=== PATIENT | female | born 1980 | race Two or more races ===

== ENCOUNTER 2023-02-05 00:13 | Inpatient (IN) | payer MEDICAID ==
[~2023-02-05 00:13] MED LIST: PREN1TAB52 PO
[2023-02-05 00:20] VITALS: BP 149/98; PULSE 98; RESP 18; TEMP 97.5; O2SAT 99
[2023-02-05] MEDS ORDERED: CLON-598 PO (17:18)
[2023-02-05 18:05] VITALS: BP 109/72; PULSE 103; RESP 16; TEMP 98.5
[2023-02-05] MEDS ORDERED: INFLUENZA VIRUS VACCINE QVS 2023-24 (6MO+)/PF 60 MCG/0.5 ML SYRINGE IM. ONE (18:30)
[2023-02-05 18:36] LABS: GLUCOMETER DEV NAME(LOC) POC.BV; POC SARS-COV2 AG, FIA NEGATIVE (NEGATIVE)
[2023-02-05] MEDS ORDERED: HALOPERIDOL 5 MG TABLET PO PRN (21:15)
[2023-02-05] MEDS ORDERED: LORazepam 2 MG TABLET PO PRN (21:15)
[2023-02-06] VITALS (11 sets, daily range): BP systolic 123–158; BP diastolic 77–122; PULSE 72–122; RESP 17–20; TEMP 96.9–98; O2SAT 97–100
[2023-02-06] MEDS ORDERED: LORazepam 2 MG TABLET PO PRN (09:15)
[2023-02-06] MEDS ORDERED: LOPERAMIDE HCL 2 MG CAPSULE PO PRN ×2 (09:15→15:00)
[2023-02-06] MEDS ORDERED: HydrOXYzine PAMOATE 50 MG CAPSULE PO PRN (09:15)
[2023-02-06] MEDS ORDERED: CYANOCOBALAMIN 1,000 MCG/ML VIAL IM ONE (09:15)
[2023-02-06] MEDS ORDERED: GuaiFENesin/D-METHORPHAN [SUGAR-FREE] 200-20MG/10 ML SYRUP UDCUP PO PRN ×2 (09:15→15:00)
[2023-02-06] MEDS: LORazepam 2 MG TABLET PO SCH (09:41)
[2023-02-06] MEDS: FOLIC ACID 1 MG TABLET PO SCH (11:35)
[2023-02-06] MEDS: SERTRALINE HCL 50 MG TABLET PO SCH (11:35)
[2023-02-06] MEDS: THIAMINE 100 MG TABLET PO SCH ×2 (11:36→16:19)
[2023-02-06] MEDS: MULTIVITAMINS WITH MINERALS, THERAPEUTIC TABLET PO SCH (11:36)
[2023-02-06 12:21] LABS: GLUCOMETER DEV NAME(LOC) POC.BV; POC SARS-COV2 AG, FIA NEGATIVE (NEGATIVE)
[2023-02-06] MEDS ORDERED: PETROLATUM,WHITE 28 GM JELLY TP PRN (15:00)
[2023-02-06] MEDS ORDERED: ONDANSETRON HCL 4 MG TABLET PO PRN (15:00)
[2023-02-06] MEDS ORDERED: MAGNESIUM HYDROXIDE SUSPENSION 30 ML UDCUP PO PRN (15:00)
[2023-02-06] MEDS ORDERED: CloNIDine HCL 0.1 MG TABLET PO PRN (15:00)
[2023-02-06] MEDS ORDERED: ACETAMINOPHEN 325 MG TABLET PO PRN (15:00)
[2023-02-06] MEDS ORDERED: IBUPROFEN 400 MG TABLET PO PRN (15:00)
[2023-02-06] MEDS ORDERED: MAG HYDROX/AL HYDROX/SIMETH ES 30 ML SUSPENSION UDCUP PO PRN (15:00)
[2023-02-06] MEDS ORDERED: DOCUSATE SODIUM 100 MG CAPSULE PO PRN (15:00)
[2023-02-06] MEDS ORDERED: NICOTINE 14 MG/24 HOUR PATCH TD PRN (15:00)
[2023-02-06] MEDS ORDERED: ALBUTEROL SULFATE HFA 90 MCG/PUFF 8 GM INHALER IH PRN (15:00)
[2023-02-06] MEDS: FAMOTIDINE 20 MG TABLET PO SCH (16:19)
[2023-02-07] MEDS ORDERED: LORazepam 2 MG TABLET PO PRN (07:00)
[2023-02-07 08:14] LABS: HEMATOCRIT 39.6 % (36-46); HEMOGLOBIN 13.9 g/dL (12.0-16.0); LYMPHOCYTES # (AUTO) 0.6 K/uL (1.0-4.8); LYMPHOCYTES % (AUTO) 19.2 % (22.0-44.0); MEAN CORPUSCULAR HEMOGLOBIN 36.4 pg (26.0-34.0); MEAN CORPUSCULAR HGB CONC 35.2 G/dL (31.0-37.0); MEAN CORPUSCULAR VOLUME 103 fL (80-100); MONOCYTES # (AUTO) 0.3 K/uL (0.1-1.0); MONOCYTES % (AUTO) 10.6 % (2.0-9.0); NEUTROPHILS # (AUTO) 2.1 K/uL (1.8-7.7); NEUTROPHILS % (AUTO) 67.2 % (40.0-70.0); PLATELET COUNT (AUTO) 165 K/uL (150-450); RED BLOOD CELL COUNT(AUTO) 3.83 MIL/uL (4.00-5.20); RED CELL DISTRIBUTION WIDTH 14.5 % (11.5-14.5); WHITE BLOOD COUNT (AUTO) 3.2 K/uL (4.5-11.0)
[2023-02-07] MEDS: THIAMINE 100 MG TABLET PO SCH ×2 (08:15→17:20)
[2023-02-07] MEDS: MULTIVITAMINS WITH MINERALS, THERAPEUTIC TABLET PO SCH (08:15)
[2023-02-07] MEDS: FOLIC ACID 1 MG TABLET PO SCH (08:15)
[2023-02-07] MEDS: FAMOTIDINE 20 MG TABLET PO SCH ×2 (08:15→16:02)
[2023-02-07] MEDS: SERTRALINE HCL 50 MG TABLET PO SCH (08:15)
[2023-02-07 08:30] VITALS: BP 154/87; PULSE 72; RESP 18; TEMP 97.6; O2SAT 100
[2023-02-07 08:32] LABS: RBC MORPHOLOGY COMMENT ABNORMAL RBC MORPH
[2023-02-07 08:41] LABS: ALANINE AMINOTRANSFERASE 38 U/L (12-78); ALBUMIN 3.3 g/dL (3.4-5.0); ALKALINE PHOSPHATASE 105 U/L (46-116); ANION GAP 6 mmol/L (8-16); ASPARTATE AMINOTRANSFERASE 68 U/L (15-37); CALCIUM, TOTAL 9.5 mg/dL (8.8-10.5); CARBON DIOXIDE 29 mmol/L (22-29); CHLORIDE 96 mmol/L (98-107); CREATININE 0.54 mg/dL (0.60-1.30); GLOMERULAR FILTR. RATE CALC > 60 mL/min (>60); GLUCOSE,RANDOM 79 mg/dL (70-110); POTASSIUM 3.9 mmol/L (3.5-5.1); SODIUM SERUM 131 mmol/L (136-145); THYROID STIMULATING HORMONE 0.73 uIU/mL (0.36-3.74); TOTAL PROTEIN, SERUM 7.4 g/dL (6.4-8.2); UREA NITROGEN, BLOOD 4 mg/dL (7-18)
[2023-02-07 09:10] LABS: CHOLESTEROL 293 mg/dL (131-200); LIPASE 129 U/L (16-77); TRIGLYCERIDES 29 mg/dL (15-150)
[2023-02-07 09:23] LABS: CHOL/HDL RATIO 1.4 (3.9-5.7); HDL CHOLESTEROL 212 mg/dL (40-60); LDL CHOL (CALC.) 75 mg/dL (0-130)
[2023-02-07] MEDS: LORazepam 2 MG TABLET PO SCH ×3 (12:40→20:38)
[2023-02-07 20:00] VITALS: BP 144/90; PULSE 68; RESP 18; TEMP 97.7; O2SAT 100
[2023-02-08 07:00] VITALS: BP 119/64; PULSE 62; RESP 18; TEMP 97.5
[2023-02-08] MEDS: SERTRALINE HCL 50 MG TABLET PO SCH (08:11)
[2023-02-08] MEDS: MULTIVITAMINS WITH MINERALS, THERAPEUTIC TABLET PO SCH (08:11)
[2023-02-08] MEDS: THIAMINE 100 MG TABLET PO SCH ×2 (08:11→16:13)
[2023-02-08] MEDS: LORazepam 2 MG TABLET PO SCH ×4 (08:11→20:05)
[2023-02-08] MEDS: FAMOTIDINE 20 MG TABLET PO SCH ×2 (08:11→16:13)
[2023-02-08] MEDS: FOLIC ACID 1 MG TABLET PO SCH (08:11)
[2023-02-08 15:28] VITALS: BP 124/89; PULSE 99; RESP 17; TEMP 97.5; O2SAT 100
[2023-02-08 21:56] VITALS: BP 121/81; PULSE 73; RESP 18; TEMP 97.7; O2SAT 99
[2023-02-09] MEDS ORDERED: LORazepam 1 MG TABLET PO PRN (07:00)
[2023-02-09] MEDS: FAMOTIDINE 20 MG TABLET PO SCH ×2 (08:32→17:04)
[2023-02-09] MEDS: FOLIC ACID 1 MG TABLET PO SCH (08:33)
[2023-02-09] MEDS: THIAMINE 100 MG TABLET PO SCH ×2 (08:33→17:05)
[2023-02-09] MEDS: MULTIVITAMINS WITH MINERALS, THERAPEUTIC TABLET PO SCH (08:33)
[2023-02-09] MEDS: SERTRALINE HCL 50 MG TABLET PO SCH (08:33)
[2023-02-09] MEDS: LORazepam 1 MG TABLET PO SCH ×4 (08:36→20:20)
[2023-02-09 14:02] VITALS: BP 115/78; PULSE 73; RESP 18; TEMP 97.1; O2SAT 99
[2023-02-09] MEDS: ZOLPIDEM TARTRATE 10 MG TABLET PO PRN (20:20)
[2023-02-09 20:37] VITALS: BP 118/79; PULSE 85; RESP 16; TEMP 97.5
[2023-02-10] MEDS ORDERED: LORazepam 1 MG TABLET PO PRN (07:00)
[2023-02-10] MEDS: MULTIVITAMINS WITH MINERALS, THERAPEUTIC TABLET PO SCH (08:00)
[2023-02-10] MEDS: THIAMINE 100 MG TABLET PO SCH ×2 (08:00→16:01)
[2023-02-10] MEDS: FOLIC ACID 1 MG TABLET PO SCH (08:00)
[2023-02-10] MEDS: FAMOTIDINE 20 MG TABLET PO SCH ×2 (08:00→16:01)
[2023-02-10] MEDS: SERTRALINE HCL 50 MG TABLET PO SCH (08:00)
[2023-02-10 09:00] VITALS: BP 116/84; PULSE 78; RESP 18; TEMP 98; O2SAT 98
[2023-02-10 20:58] VITALS: BP 133/89; PULSE 69; RESP 18; TEMP 97; O2SAT 98
[2023-02-10] MEDS: ZOLPIDEM TARTRATE 10 MG TABLET PO PRN (21:36)
[2023-02-11] MEDS: FAMOTIDINE 20 MG TABLET PO SCH (08:26)
[2023-02-11] MEDS: SERTRALINE HCL 50 MG TABLET PO SCH (08:26)
[2023-02-11] MEDS: THIAMINE 100 MG TABLET PO SCH (08:26)
[2023-02-11] MEDS: MULTIVITAMINS WITH MINERALS, THERAPEUTIC TABLET PO SCH (08:26)
[2023-02-11] MEDS: FOLIC ACID 1 MG TABLET PO SCH (08:26)
[2023-02-11 09:52] VITALS: BP 111/80; PULSE 98; RESP 16; TEMP 97.9; O2SAT 100
[2023-02-11] MEDS ORDERED: SERT-439 PO (14:46)
== END 2023-02-11 16:00 | disposition home or self-care (01) | DRG 751 ==
LOC: B3A 00:13
PROVIDERS: ADMIT Psychiatry & Neurology Psychiatry; ATTEND Psychiatry & Neurology Psychiatry
DX: F33.2 Major depressive disorder, recurrent severe without psychotic features (principal); E87.1 Hypo-osmolality and hyponatremia; R45.851 Suicidal ideations; G47.00 Insomnia, unspecified; Z20.822 Contact with and (suspected) exposure to COVID-19; R03.0 Elevated blood-pressure reading, without diagnosis of hypertension; F41.9 Anxiety disorder, unspecified; F12.90 Cannabis use, unspecified, uncomplicated; F10.939 Alcohol use, unspecified with withdrawal, unspecified; Z79.899 Other long term (current) drug therapy; Z91.51 Personal history of suicidal behavior
CPT/HCPCS: 80053; 80061; 83036; 83690; 84443; 85025; J3420; Q0162

== ENCOUNTER 2023-02-05 20:08 | Emergency (ER) | payer MEDICAID, OTHER ==
[~2023-02-05] VITALS: Ht 157.5 cm; Wt 61.0 kg
[~2023-02-05 20:08] MED LIST changes: +CLON-598 PO
[2023-02-05 21:14] LABS: BASOPHILS % (AUTO) 1.1 % (0.0-2.0); EOSINOPHILS % (AUTO) 1.4 % (1.0-6.0); HEMATOCRIT 41.1 % (36-46); HEMOGLOBIN 14.6 g/dL (12.0-16.0); LYMPHOCYTES % (AUTO) 28.6 % (22.0-44.0); MEAN CORPUSCULAR HEMOGLOBIN 36.2 pg (26.0-34.0); MEAN CORPUSCULAR HGB CONC 35.4 G/dL (31.0-37.0); MEAN CORPUSCULAR VOLUME 102 fL (80-100); MONOCYTES # (AUTO) 0.3 K/uL (0.1-1.0); MONOCYTES % (AUTO) 8.6 % (2.0-9.0); NEUTROPHILS # (AUTO) 2.1 K/uL (1.8-7.7); NEUTROPHILS % (AUTO) 60.3 % (40.0-70.0); PLATELET COUNT (AUTO) 212 K/uL (150-450); RED BLOOD CELL COUNT(AUTO) 4.02 MIL/uL (4.00-5.20); RED CELL DISTRIBUTION WIDTH 14.4 % (11.5-14.5); WHITE BLOOD COUNT (AUTO) 3.5 K/uL (4.5-11.0)
[2023-02-05 21:22] LABS: ALCOHOL, BLOOD (SERUM) 169 mg/dL (0-10)
[2023-02-05 21:26] LABS: COVID AG,FIA SOURCE NASOPHARYNGEAL
[2023-02-05 21:30] LABS: PH,URINE DRUG SCREEN 6.5 (5.0-8.0)
[2023-02-05 21:30] LABS: ANION GAP 14 mmol/L (8-16); CALCIUM, TOTAL 9.4 mg/dL (8.8-10.5); CARBON DIOXIDE 24 mmol/L (22-29); CHLORIDE 95 mmol/L (98-107); CREATININE 0.48 mg/dL (0.60-1.30); GLOMERULAR FILTR. RATE CALC > 60 mL/min (>60); GLUCOSE,RANDOM 96 mg/dL (70-110); POTASSIUM 3.5 mmol/L (3.5-5.1); SODIUM SERUM 133 mmol/L (136-145); UREA NITROGEN, BLOOD 3 mg/dL (7-18)
[2023-02-05 21:35] LABS: ALANINE AMINOTRANSFERASE 51 U/L (12-78); ALBUMIN 3.8 g/dL (3.4-5.0); ALKALINE PHOSPHATASE 118 U/L (46-116); ASPARTATE AMINOTRANSFERASE 101 U/L (15-37); BILIRUBIN,TOTAL 0.7 mg/dL (0.1-1.0); HCG,QUANTITATIVE 3 mIU/mL (0-6); TOTAL PROTEIN, SERUM 7.9 g/dL (6.4-8.2)
[2023-02-05 21:39] LABS: ALCOHOL, URINE DRUG SCREEN POSITIVE (NEGATIVE); AMPHET/METH SCREEN,URINE NEGATIVE (NEGATIVE); BARBITURATE SCREEN, URINE NEGATIVE (NEGATIVE); BENZODIAZEPINES SCREEN,URINE NEGATIVE (NEGATIVE); CANNABINOID SCREEN,URINE POSITIVE (NEGATIVE); COCAINE SCREEN,URINE NEGATIVE (NEGATIVE); METHADONE SCREEN, URINE NEGATIVE (NEGATIVE); OPIATE SCREEN,URINE NEGATIVE (NEGATIVE); PHENCYCLIDINE SCREEN,URINE NEGATIVE (NEGATIVE)
[2023-02-05 21:48] LABS: SARS-COV2 (COVID) ANTIGEN,FIA Negative (Negative)
[2023-02-05 21:51] LABS: RBC MORPHOLOGY COMMENT ABNORMAL RBC MORPH
[2023-02-05 23:44] VITALS: BP 130/80; PULSE 82; RESP 18; TEMP 98.3
== END 2023-02-05 23:56 | disposition home or self-care (01) ==
LOC: EMS 20:08
DX: F32.9 Major depressive disorder, single episode, unspecified (principal); F10.20 Alcohol dependence, uncomplicated; F12.90 Cannabis use, unspecified, uncomplicated; Z20.822 Contact with and (suspected) exposure to COVID-19; Y90.9 Presence of alcohol in blood, level not specified
CPT/HCPCS: 99285; 87426; 80053; 84702; 85025; 36415; 80307; G0480

== ENCOUNTER 2023-02-15 15:17 | Inpatient (IN) | payer MEDICAID, OTHER ==
[~2023-02-15 15:17] MED LIST changes: -CLON-598 PO; -PREN1TAB52 PO; +SERT-439 PO
[2023-02-15 17:44] VITALS: BP 130/85; PULSE 88; RESP 20; TEMP 98.3
[2023-02-15] MEDS ORDERED: LORazepam 2 MG TABLET PO PRN (18:15)
[2023-02-15] MEDS ORDERED: HALOPERIDOL 5 MG TABLET PO PRN (18:15)
[2023-02-15] MEDS ORDERED: INFLUENZA VIRUS VACCINE QVS 2023-24 (6MO+)/PF 60 MCG/0.5 ML SYRINGE IM. ONE (19:00)
[2023-02-15 20:51] LABS: GLUCOMETER DEV NAME(LOC) POC.BV; POC SARS-COV2 AG, FIA NEGATIVE (NEGATIVE)
[2023-02-15] MEDS: ZOLPIDEM TARTRATE 10 MG TABLET PO PRN (21:26)
[2023-02-15 22:47] VITALS: BP 118/68; PULSE 83; RESP 18; TEMP 97.8
[2023-02-16] VITALS (8 sets, daily range): BP systolic 117–143; BP diastolic 75–99; PULSE 100–141; RESP 16–20; TEMP 97.3–98; O2SAT 97–100
[2023-02-16] MEDS: SERTRALINE HCL 50 MG TABLET PO SCH (08:56)
[2023-02-16] MEDS: NICOTINE 21 MG/24 HOUR PATCH TD SCH (08:58)
[2023-02-16] MEDS ORDERED: CYANOCOBALAMIN 1,000 MCG/ML VIAL IM ONE (09:00)
[2023-02-16] MEDS ORDERED: GuaiFENesin/D-METHORPHAN [SUGAR-FREE] 200-20MG/10 ML SYRUP UDCUP PO PRN ×2 (09:00→15:30)
[2023-02-16] MEDS ORDERED: LOPERAMIDE HCL 2 MG CAPSULE PO PRN ×2 (09:00→15:30)
[2023-02-16] MEDS ORDERED: HydrOXYzine PAMOATE 50 MG CAPSULE PO PRN (09:00)
[2023-02-16 09:04] LABS: BASOPHILS % (AUTO) 0.9 % (0.0-2.0); EOSINOPHILS % (AUTO) 0.7 % (1.0-6.0); HEMATOCRIT 39.7 % (36-46); LYMPHOCYTES # (AUTO) 0.5 K/uL (1.0-4.8); LYMPHOCYTES % (AUTO) 10.5 % (22.0-44.0); MEAN CORPUSCULAR HEMOGLOBIN 36.4 pg (26.0-34.0); MEAN CORPUSCULAR HGB CONC 35.1 G/dL (31.0-37.0); MEAN CORPUSCULAR VOLUME 104 fL (80-100); MONOCYTES # (AUTO) 0.6 K/uL (0.1-1.0); MONOCYTES % (AUTO) 11.6 % (2.0-9.0); NEUTROPHILS # (AUTO) 3.9 K/uL (1.8-7.7); NEUTROPHILS % (AUTO) 76.3 % (40.0-70.0); PLATELET COUNT (AUTO) 464 K/uL (150-450); RED BLOOD CELL COUNT(AUTO) 3.83 MIL/uL (4.00-5.20); RED CELL DISTRIBUTION WIDTH 14.7 % (11.5-14.5); WHITE BLOOD COUNT (AUTO) 5.1 K/uL (4.5-11.0)
[2023-02-16 09:12] LABS: RBC MORPHOLOGY COMMENT ABNORMAL RBC MORPH
[2023-02-16 09:25] LABS: ALCOHOL, BLOOD (SERUM) < 3 mg/dL (0-10)
[2023-02-16] MEDS: FOLIC ACID 1 MG TABLET PO SCH (09:25)
[2023-02-16] MEDS: THIAMINE 100 MG TABLET PO SCH ×2 (09:25→16:18)
[2023-02-16] MEDS: MULTIVITAMINS WITH MINERALS, THERAPEUTIC TABLET PO SCH (09:25)
[2023-02-16] MEDS: LORazepam 2 MG TABLET PO PRN ×2 (09:30→12:06)
[2023-02-16 09:44] LABS: CARBON DIOXIDE 29 mmol/L (22-29); CHLORIDE 96 mmol/L (98-107); SODIUM SERUM 135 mmol/L (136-145)
[2023-02-16 09:45] LABS: ALANINE AMINOTRANSFERASE 61 U/L (12-78); ALBUMIN 3.7 g/dL (3.4-5.0); ALKALINE PHOSPHATASE 96 U/L (46-116); ANION GAP 10 mmol/L (8-16); ASPARTATE AMINOTRANSFERASE 61 U/L (15-37); BILIRUBIN,TOTAL 0.6 mg/dL (0.1-1.0); CALCIUM, TOTAL 9.9 mg/dL (8.8-10.5); CHOLESTEROL 297 mg/dL (131-200); CREATININE 0.67 mg/dL (0.60-1.30); FREE T4 (FREE THYROXINE) 0.87 ng/dL (0.76-1.46); GLOMERULAR FILTR. RATE CALC > 60 mL/min (>60); GLUCOSE,RANDOM 205 mg/dL (70-110); HCG,QUANTITATIVE 2 mIU/mL (0-6); THYROID STIMULATING HORMONE 0.68 uIU/mL (0.36-3.74); TOTAL PROTEIN, SERUM 8.1 g/dL (6.4-8.2); TRIGLYCERIDES 47 mg/dL (15-150); UREA NITROGEN, BLOOD 4 mg/dL (7-18)
[2023-02-16 10:05] LABS: CHOL/HDL RATIO 1.7 (3.9-5.7); HDL CHOLESTEROL 176 mg/dL (40-60); LDL CHOL (CALC.) 112 mg/dL (0-130)
[2023-02-16] MEDS ORDERED: MAG HYDROX/ALUMINUM HYD/SIMETH ES 30 ML SUSPENSION UDCUP PO PRN (15:30)
[2023-02-16] MEDS ORDERED: IBUPROFEN 400 MG TABLET PO PRN (15:30)
[2023-02-16] MEDS ORDERED: PETROLATUM,WHITE 28 GM JELLY TP PRN (15:30)
[2023-02-16] MEDS ORDERED: MAGNESIUM HYDROXIDE SUSPENSION 30 ML UDCUP PO PRN (15:30)
[2023-02-16] MEDS ORDERED: ALBUTEROL SULFATE HFA 90 MCG/PUFF 8 GM INHALER IH PRN (15:30)
[2023-02-16] MEDS ORDERED: ACETAMINOPHEN 325 MG TABLET PO PRN (15:30)
[2023-02-16] MEDS ORDERED: NICOTINE 14 MG/24 HOUR PATCH TD PRN (15:30)
[2023-02-16] MEDS ORDERED: DOCUSATE SODIUM 100 MG CAPSULE PO PRN (15:30)
[2023-02-16] MEDS ORDERED: CloNIDine HCL 0.1 MG TABLET PO PRN (15:30)
[2023-02-16] MEDS ORDERED: ONDANSETRON HCL 4 MG TABLET PO PRN (15:30)
[2023-02-17 04:00] VITALS: BP 136/92; PULSE 98; RESP 17; TEMP 97.5; O2SAT 100
[2023-02-17] MEDS: LORazepam 2 MG TABLET PO PRN (06:42)
[2023-02-17] MEDS ORDERED: LORazepam 2 MG TABLET PO PRN (07:00)
[2023-02-17 07:35] LABS: HEMOGLOBIN A1C 4.8 % (3.8-5.6)
[2023-02-17 07:40] LABS: THYROID STIMULATING HORMONE 0.77 uIU/mL (0.36-3.74)
[2023-02-17 07:58] LABS: CHOL/HDL RATIO 1.2 (3.9-5.7)
[2023-02-17] MEDS: MULTIVITAMINS WITH MINERALS, THERAPEUTIC TABLET PO SCH (08:10)
[2023-02-17] MEDS: THIAMINE 100 MG TABLET PO SCH ×2 (08:10→16:04)
[2023-02-17] MEDS: SERTRALINE HCL 50 MG TABLET PO SCH (08:10)
[2023-02-17] MEDS: FOLIC ACID 1 MG TABLET PO SCH (08:10)
[2023-02-17] MEDS: LORazepam 2 MG TABLET PO SCH ×4 (08:10→20:00)
[2023-02-17] MEDS: NICOTINE 21 MG/24 HOUR PATCH TD SCH (08:11)
[2023-02-17 08:44] VITALS: BP 119/77; PULSE 100; RESP 17; TEMP 98; O2SAT 98
[2023-02-17 20:59] VITALS: BP 121/79; PULSE 90; RESP 16; TEMP 97.5; O2SAT 99
[2023-02-18 08:21] VITALS: BP 121/84; PULSE 87; RESP 16; TEMP 98; O2SAT 96
[2023-02-18] MEDS: LORazepam 2 MG TABLET PO SCH ×4 (08:30→20:06)
[2023-02-18] MEDS: MULTIVITAMINS WITH MINERALS, THERAPEUTIC TABLET PO SCH (08:30)
[2023-02-18] MEDS: SERTRALINE HCL 50 MG TABLET PO SCH (08:30)
[2023-02-18] MEDS: FOLIC ACID 1 MG TABLET PO SCH (08:30)
[2023-02-18] MEDS: THIAMINE 100 MG TABLET PO SCH ×2 (08:31→17:23)
[2023-02-18] MEDS: NICOTINE 21 MG/24 HOUR PATCH TD SCH (08:32)
[2023-02-18 20:21] VITALS: BP 123/80; PULSE 92; RESP 19; TEMP 97.6; O2SAT 98
[2023-02-19] MEDS ORDERED: LORazepam 1 MG TABLET PO PRN (07:00)
[2023-02-19 08:17] VITALS: BP 122/74; PULSE 86; RESP 18; TEMP 98; O2SAT 96
[2023-02-19] MEDS: NICOTINE 21 MG/24 HOUR PATCH TD SCH (08:54)
[2023-02-19] MEDS: FOLIC ACID 1 MG TABLET PO SCH (08:54)
[2023-02-19] MEDS: LORazepam 1 MG TABLET PO SCH ×4 (08:54→21:02)
[2023-02-19] MEDS: SERTRALINE HCL 50 MG TABLET PO SCH (08:56)
[2023-02-19] MEDS: THIAMINE 100 MG TABLET PO SCH ×2 (08:56→16:20)
[2023-02-19] MEDS: MULTIVITAMINS WITH MINERALS, THERAPEUTIC TABLET PO SCH (08:57)
[2023-02-19 21:00] VITALS: BP 126/77; PULSE 88; RESP 18; TEMP 98; O2SAT 97
[2023-02-19] MEDS: ZOLPIDEM TARTRATE 10 MG TABLET PO PRN (21:02)
[2023-02-19 21:04] VITALS: BP 126/77; PULSE 88; RESP 18; TEMP 98
[2023-02-20] MEDS ORDERED: LORazepam 1 MG TABLET PO PRN (07:00)
[2023-02-20] MEDS: FOLIC ACID 1 MG TABLET PO SCH (08:25)
[2023-02-20] MEDS: MULTIVITAMINS WITH MINERALS, THERAPEUTIC TABLET PO SCH (08:25)
[2023-02-20] MEDS: SERTRALINE HCL 50 MG TABLET PO SCH (08:25)
[2023-02-20] MEDS: THIAMINE 100 MG TABLET PO SCH (08:25)
[2023-02-20] MEDS: NICOTINE 21 MG/24 HOUR PATCH TD SCH (08:25)
[2023-02-20 08:51] VITALS: BP 116/77; PULSE 83; RESP 16; TEMP 97.8; O2SAT 98
[2023-02-20 09:07] LABS: APPEARANCE,URINE CLEAR (CLEAR); BILIRUBIN,URINE NEGATIVE (NEGATIVE); COLOR,URINE YELLOW (YELLOW); GLUCOSE, URINE (UA) NEGATIVE (NEGATIVE); KETONES,URINE NEGATIVE (NEGATIVE); LEUKOCYTE ESTERASE ,URINE NEGATIVE (NEGATIVE); NITRATE,URINE POSITIVE (NEGATIVE); OCCULT BLOOD,URINE NEGATIVE (NEGATIVE); PH,URINE 7.5 (5.0-8.0); PH,URINE DRUG SCREEN 7.5 (5.0-8.0); PROTEIN,URINE NEGATIVE (NEGATIVE); SPECIFIC GRAVITIY, URINE 1.014 (1.003-1.030); UROBILINOGEN,URINE <=1.0 mg/dL (<=1.0)
[2023-02-20 09:13] LABS: ALCOHOL, URINE DRUG SCREEN NEGATIVE (NEGATIVE); AMPHET/METH SCREEN,URINE NEGATIVE (NEGATIVE); BARBITURATE SCREEN, URINE NEGATIVE (NEGATIVE); BENZODIAZEPINES SCREEN,URINE NEGATIVE (NEGATIVE); CANNABINOID SCREEN,URINE POSITIVE (NEGATIVE); COCAINE SCREEN,URINE NEGATIVE (NEGATIVE); METHADONE SCREEN, URINE NEGATIVE (NEGATIVE); OPIATE SCREEN,URINE NEGATIVE (NEGATIVE); PHENCYCLIDINE SCREEN,URINE NEGATIVE (NEGATIVE)
[2023-02-20 09:27] LABS: BACTERIA,URINE Moderate /HPF (None Seen); RBC,URINE None Seen /HPF (0-2); SQUAMOUS EPITHELIAL CELL,UR None Seen /LPF (None Seen); WBC,URINE 0-2 /HPF (0-5)
[2023-02-20] MEDS ORDERED: SERT-439 PO (12:07)
== END 2023-02-20 15:00 | disposition home or self-care (01) | DRG 751 ==
LOC: B2S 18:43 → B3A 20:10
PROVIDERS: ADMIT Psychiatry & Neurology Psychiatry; ATTEND Psychiatry & Neurology Psychiatry
DX: F33.2 Major depressive disorder, recurrent severe without psychotic features (principal); R45.851 Suicidal ideations; F41.9 Anxiety disorder, unspecified; E78.00 Pure hypercholesterolemia, unspecified; R73.9 Hyperglycemia, unspecified; F12.90 Cannabis use, unspecified, uncomplicated; F10.10 Alcohol abuse, uncomplicated; Z79.899 Other long term (current) drug therapy; Z91.51 Personal history of suicidal behavior; Z20.822 Contact with and (suspected) exposure to COVID-19
CPT/HCPCS: 80053; 80061; 80307; 81001; 83036; 84439; 84443; 84702; 85025; 87081; 87086; 87186; 90686; G0480; J3420

== ENCOUNTER 2023-03-23 03:37 | Inpatient (IN) | payer MEDICAID ==
[2023-03-23] VITALS (8 sets, daily range): BP systolic 108–142; BP diastolic 61–97; PULSE 74–112; RESP 16–20; TEMP 97–98.4; O2SAT 96–99
[~2023-03-23] VITALS: Ht 167.6 cm; Wt 67.0 kg
[2023-03-23] MEDS ORDERED: INFLUENZA VIRUS VACCINE QVS 2023-24 (6MO+)/PF 60 MCG/0.5 ML SYRINGE IM. ONE (11:15)
[2023-03-23 11:41] LABS: GLUCOMETER DEV NAME(LOC) POC.BV; POC SARS-COV2 AG, FIA NEGATIVE (NEGATIVE)
[2023-03-23] MEDS ORDERED: ChlordiazePOXIDE HCL 25 MG CAPSULE PO PRN (13:45)
[2023-03-23] MEDS: PARoxetine HCL 20 MG TABLET PO SCH (14:42)
[2023-03-23 17:02] LABS: APPEARANCE,URINE CLEAR (CLEAR); BILIRUBIN,URINE NEGATIVE (NEGATIVE); COLOR,URINE LIGHT YELLOW (YELLOW); GLUCOSE, URINE (UA) NEGATIVE (NEGATIVE); KETONES,URINE NEGATIVE (NEGATIVE); LEUKOCYTE ESTERASE ,URINE NEGATIVE (NEGATIVE); NITRATE,URINE NEGATIVE (NEGATIVE); OCCULT BLOOD,URINE NEGATIVE (NEGATIVE); PH,URINE 6.5 (5.0-8.0); PH,URINE DRUG SCREEN 6.5 (5.0-8.0); PROTEIN,URINE NEGATIVE (NEGATIVE); SPECIFIC GRAVITIY, URINE 1.009 (1.003-1.030); UROBILINOGEN,URINE <=1.0 mg/dL (<=1.0)
[2023-03-23 17:10] LABS: AMPHET/METH SCREEN,URINE NEGATIVE (NEGATIVE); BARBITURATE SCREEN, URINE NEGATIVE (NEGATIVE); BENZODIAZEPINES SCREEN,URINE NEGATIVE (NEGATIVE); CANNABINOID SCREEN,URINE POSITIVE (NEGATIVE); COCAINE SCREEN,URINE NEGATIVE (NEGATIVE); METHADONE SCREEN, URINE NEGATIVE (NEGATIVE); OPIATE SCREEN,URINE NEGATIVE (NEGATIVE); PHENCYCLIDINE SCREEN,URINE NEGATIVE (NEGATIVE)
[2023-03-23 17:11] LABS: ALCOHOL, URINE DRUG SCREEN POSITIVE (NEGATIVE)
[2023-03-23] MEDS ORDERED: OMEPRAZOLE 20 MG CAPSULE PO PRN (17:15)
[2023-03-23] MEDS ORDERED: ACETAMINOPHEN 325 MG TABLET PO PRN (17:15)
[2023-03-23] MEDS ORDERED: ALBUTEROL SULFATE HFA 90 MCG/PUFF 8 GM INHALER IH PRN (17:15)
[2023-03-23] MEDS ORDERED: IBUPROFEN 600 MG TABLET PO PRN (17:15)
[2023-03-23] MEDS ORDERED: BENZOCAINE/MENTHOL LOZENGE PO PRN (17:15)
[2023-03-23] MEDS ORDERED: MAG HYDROX/ALUMINUM HYD/SIMETH ES 30 ML SUSPENSION UDCUP PO PRN (17:15)
[2023-03-23] MEDS ORDERED: BACITRACIN 28 GM OINTMENT TP PRN (17:15)
[2023-03-23] MEDS ORDERED: CloNIDine HCL 0.1 MG TABLET PO PRN (17:15)
[2023-03-23] MEDS ORDERED: ONDANSETRON HCL 4 MG TABLET PO PRN (17:15)
[2023-03-23] MEDS ORDERED: LOPERAMIDE HCL 2 MG CAPSULE PO PRN (17:15)
[2023-03-23] MEDS ORDERED: PETROLATUM,WHITE 28 GM JELLY TP PRN (17:15)
[2023-03-23] MEDS ORDERED: DOCUSATE SODIUM 100 MG CAPSULE PO PRN (17:15)
[2023-03-23] MEDS ORDERED: MAGNESIUM HYDROXIDE SUSPENSION 30 ML UDCUP PO PRN (17:15)
[2023-03-23] MEDS: LORazepam 2 MG TABLET PO PRN (18:36)
[2023-03-23] MEDS: ZOLPIDEM TARTRATE 10 MG TABLET PO PRN (20:20)
[2023-03-24] MEDS ORDERED: ChlordiazePOXIDE HCL 25 MG CAPSULE PO PRN (07:00)
[2023-03-24] MEDS: PARoxetine HCL 20 MG TABLET PO SCH (08:24)
[2023-03-24] MEDS: ChlordiazePOXIDE HCL 25 MG CAPSULE PO SCH ×4 (08:24→20:18)
[2023-03-24 08:43] VITALS: BP 121/65; PULSE 97; RESP 20; TEMP 98.7; O2SAT 97
[2023-03-24 14:00] VITALS: BP 138/88; PULSE 84; RESP 17; TEMP 97.6; O2SAT 96
[2023-03-24 22:00] VITALS: BP 144/98; PULSE 74; RESP 18; TEMP 97.8
[2023-03-25 00:04] VITALS: BP 144/98; PULSE 74; RESP 18; TEMP 97.8; O2SAT 98
[2023-03-25 02:00] VITALS: BP 136/82; PULSE 98; RESP 18; TEMP 98
[2023-03-25 08:15] VITALS: BP 112/74; PULSE 73; RESP 17; TEMP 98.2; O2SAT 98
[2023-03-25] MEDS: ChlordiazePOXIDE HCL 25 MG CAPSULE PO SCH ×4 (08:21→20:37)
[2023-03-25] MEDS: LORazepam 2 MG TABLET PO PRN (08:21)
[2023-03-25] MEDS: PARoxetine HCL 20 MG TABLET PO SCH (08:22)
[2023-03-25 14:51] VITALS: BP 112/74; PULSE 73; RESP 17; TEMP 98.2; O2SAT 98
[2023-03-25 23:02] VITALS: RESP 18; TEMP 97.8
[2023-03-26] MEDS ORDERED: ChlordiazePOXIDE HCL 10 MG CAPSULE PO PRN (07:00)
[2023-03-26 08:35] VITALS: BP 124/82; PULSE 103; RESP 18; TEMP 98.2; O2SAT 99
[2023-03-26] MEDS: LORazepam 2 MG TABLET PO PRN (08:36)
[2023-03-26] MEDS: ChlordiazePOXIDE HCL 10 MG CAPSULE PO SCH ×4 (08:36→20:12)
[2023-03-26] MEDS: PARoxetine HCL 20 MG TABLET PO SCH (08:37)
[2023-03-26] MEDS: ZOLPIDEM TARTRATE 10 MG TABLET PO PRN (20:13)
[2023-03-26 20:41] VITALS: BP 118/80; PULSE 79; RESP 18; TEMP 98; O2SAT 98
[2023-03-27] MEDS ORDERED: ChlordiazePOXIDE HCL 10 MG CAPSULE PO PRN (07:00)
[2023-03-27] MEDS: PARoxetine HCL 20 MG TABLET PO SCH (08:09)
[2023-03-27 08:25] VITALS: BP 127/85; PULSE 84; RESP 17; TEMP 98; O2SAT 98
[2023-03-27] MEDS: LORazepam 2 MG TABLET PO PRN ×2 (08:41→14:28)
[2023-03-27 20:00] VITALS: BP 100/60; PULSE 76; RESP 18; TEMP 97; O2SAT 99
[2023-03-28] MEDS: PARoxetine HCL 20 MG TABLET PO SCH (08:20)
[2023-03-28] MEDS: LORazepam 2 MG TABLET PO PRN ×2 (08:20→12:37)
[2023-03-28] MEDS: FOLIC ACID 1 MG TABLET PO SCH (08:20)
[2023-03-28] MEDS: THIAMINE 100 MG TABLET PO SCH (08:21)
[2023-03-28 08:28] VITALS: BP 117/76; PULSE 88; RESP 16; TEMP 98; O2SAT 97
[2023-03-28 13:03] VITALS: RESP 16
[2023-03-28 14:03] VITALS: RESP 16
[2023-03-28] MEDS: ZOLPIDEM TARTRATE 10 MG TABLET PO PRN (20:29)
[2023-03-28 21:32] VITALS: BP 110/64; PULSE 67; RESP 19; TEMP 98.4; O2SAT 98
[2023-03-29] MEDS: LORazepam 2 MG TABLET PO PRN (08:25)
[2023-03-29] MEDS: HALOPERIDOL 5 MG TABLET PO PRN (08:25)
[2023-03-29] MEDS: PARoxetine HCL 20 MG TABLET PO SCH (08:25)
[2023-03-29] MEDS: FOLIC ACID 1 MG TABLET PO SCH (08:25)
[2023-03-29] MEDS: THIAMINE 100 MG TABLET PO SCH (08:25)
[2023-03-29 08:53] VITALS: BP 110/79; PULSE 100; RESP 16; TEMP 98; O2SAT 97
[2023-03-29] MEDS: ZOLPIDEM TARTRATE 10 MG TABLET PO PRN (20:51)
[2023-03-30 00:48] VITALS: BP 105/59; PULSE 60; RESP 17; TEMP 97.6
[2023-03-30 08:24] VITALS: BP 98/64; PULSE 86; RESP 18; TEMP 97.1; O2SAT 98
[2023-03-30] MEDS: HALOPERIDOL 5 MG TABLET PO PRN (08:46)
[2023-03-30] MEDS: LORazepam 2 MG TABLET PO PRN (08:46)
[2023-03-30] MEDS: PARoxetine HCL 20 MG TABLET PO SCH (08:46)
[2023-03-30] MEDS: FOLIC ACID 1 MG TABLET PO SCH (08:46)
[2023-03-30] MEDS: THIAMINE 100 MG TABLET PO SCH (08:46)
[2023-03-30 23:45] VITALS: BP 108/64; PULSE 78; RESP 18; TEMP 97.6; O2SAT 97
[2023-03-31 08:27] VITALS: BP 106/69; PULSE 87; RESP 18; TEMP 98; O2SAT 99
[2023-03-31] MEDS: PARoxetine HCL 20 MG TABLET PO SCH (08:50)
[2023-03-31] MEDS: FOLIC ACID 1 MG TABLET PO SCH (08:50)
[2023-03-31] MEDS: LORazepam 2 MG TABLET PO PRN (08:50)
[2023-03-31] MEDS: THIAMINE 100 MG TABLET PO SCH (08:50)
[2023-03-31] MEDS: HALOPERIDOL 5 MG TABLET PO PRN (08:50)
[2023-03-31 20:09] VITALS: BP 108/61; PULSE 67; RESP 16; TEMP 98.6; O2SAT 98
[2023-04-01] MEDS: PARoxetine HCL 20 MG TABLET PO SCH (08:36)
[2023-04-01] MEDS: THIAMINE 100 MG TABLET PO SCH (08:36)
[2023-04-01] MEDS: FOLIC ACID 1 MG TABLET PO SCH (08:36)
[2023-04-01 08:46] VITALS: BP 108/80; PULSE 100; RESP 17; TEMP 97.3; O2SAT 96
== END 2023-04-01 13:30 | disposition home or self-care (01) | DRG 753 ==
LOC: B3A 05:00
PROVIDERS: ADMIT Psychiatry & Neurology Psychiatry; ATTEND Psychiatry & Neurology Psychiatry
DX: F31.9 Bipolar disorder, unspecified (principal); R45.851 Suicidal ideations; F10.129 Alcohol abuse with intoxication, unspecified; F41.9 Anxiety disorder, unspecified; G47.00 Insomnia, unspecified; Z72.0 Tobacco use; Z20.822 Contact with and (suspected) exposure to COVID-19
CPT/HCPCS: 80307; 81003; 87081